=== PATIENT | male | born 1950 | race Caucasian/White ===

== ENCOUNTER 2017-01-16 06:13 | Inpatient (IN) | payer OTHER ==
[2016-12-18 10:15] VITALS: BMI 32.0
--- NOTE | 2016-12-18 10:54 | PAT Medication Instructions ---
Service Date Dec 18, 2016. Current Home Medication List Aspirin (Aspirin Ec), 81 MG PO HS Clopidogrel (Plavix), 75 MG PO QAM Dexlansoprazole (Dexilant), 1 CAP PO HS Empagliflozin (Jardiance), 1 TAB PO QAM Insulin Degludec (Tresiba Flextouch), 47 SQ HS Krill Oil (Krill Oil [place]-3), 1 CAP PO QAM Liraglutide (Victoza), 1.8 MG SQ QAM Metformin Hcl (Glucophage), 1,000 MG PO BID Olmesartan Medoxomil (Benicar), 40 MG PO HS Rosuvastatin Calcium (Crestor), 10 MG PO HS Medication Instructions For Your Scheduled Surgery - Check with surgeon/prescribing physician for instructions (check if okay to hold 7 days prior to anesthesia in order for spinal anesthesia to be used) Clopidogrel (Plavix), 75 MG PO QAM - Hold the following medications 2 weeks prior to surgery: Krill Oil (Krill Oil [place]-3), 1 CAP PO QAM - Hold the following medications 48 hours prior to surgery: Metformin Hcl (Glucophage), 1,000 MG PO BID - Hold the following medications the morning of surgery: Empagliflozin (Jardiance), 1 TAB PO QAM - Take the following medications the morning of surgery with a sip of water: Liraglutide (Victoza), 1.8 MG SQ QAM - Hold the following medications as scheduled the night before surgery: Olmesartan Medoxomil (Benicar), 40 MG PO HS - Take the following medications as scheduled the night before surgery: Insulin Degludec (Tresiba Flextouch), 47 SQ HS Rosuvastatin Calcium (Crestor), 10 MG PO HS Dexlansoprazole (Dexilant), 1 CAP PO HS Aspirin (Aspirin Ec), 81 MG PO HS (okay to continue per surgeon) If you have any questions please call us at [phone] or [phone] or [phone]
--- NOTE | 2016-12-18 11:29 | DIAGNOSTIC IMAGING REPORT ---
CHEST 2 VIEWS ROUTINE HISTORY: Preop. COMPARISON: None. FINDINGS: The lungs are clear. Cardiac silhouette is normal in size. No pleural effusions. No pneumothorax. IMPRESSION: No acute process. Electronically signed by: Froylan Jean M.D. 12/18/2016 11:28 AM Dictated Date/Time: 12/18/2016 11:27 AM
[2016-12-18 11:48] LABS: URINE APPEARANCE CLEAR (CLEAR); URINE BILIRUBIN NEG (NEG); URINE COLOR YELLOW; URINE NITRITE NEG (NEG); URINE SPECIFIC GRAVITY 1.034 (1.000-1.030); UROBILINOGEN NEG (NEG)
[2016-12-18 11:50] LABS: MANUAL MICROSCOPIC REQUIRED? NO; REVIEW REQ? NO
[2016-12-18 11:58] LABS: PROTHROMBIN TIME (PATIENT) 10.7 SECONDS (9.0-12.0)
[2016-12-18 12:00] LABS: BUN/CREATININE RATIO 18.8 (10-20); CALCIUM 8.8 mg/dl (8.5-10.1); CREATININE 1.1 mg/dl (0.60-1.40); POTASSIUM 4.1 mmol/L (3.5-5.1)
[2016-12-18 12:19] LABS: ESTIMATED AVERAGE GLUCOSE 143 mg/dl; HA1C FLAG Normal (Normal)
[2016-12-18 12:37] LABS: HEMATOCRIT 40.3 % (42-52); MEAN CELL VOLUME 91.8 fL (80-100); MEAN CORPUSCULAR HEMOGLOBIN 30.5 pg (25-34); MEAN CORPUSCULAR HGB CONC 33.3 g/dl (32-36); MEAN PLATELET VOLUME 13.3 fL (7.4-10.4); PLATELET COUNT 117 K/uL (130-400); RED BLOOD COUNT 4.39 M/uL (4.7-6.1); WHITE BLOOD COUNT 5.29 K/uL (4.8-10.8)
[2016-12-18 12:38] LABS: BASO % 0.9 %; BASO ABS # 0.05 K/uL (0-0.2); COMPLETE YES; EOS % 2.6 %; IG% 0.4 %; LARGE PLATELETS 1+; LYMPH % 33.1 %; LYMPH ABS # 1.75 K/uL (1.2-3.4); MONO % 5.5 %; NEUT % 57.5 %; PLT ESTIMATE DECREASED
--- NOTE | 2017-01-15 10:08 | HISTORY & PHYSICAL EXAMINATION ---
DATE OF ADMISSION: 01/16/2017 CHIEF COMPLAINT: Right knee pain. HISTORY OF PRESENT ILLNESS: The patient is a 65-year-old gentleman with known osteoarthritis about his right knee. He had a previous corticosteroid injection with short term relief. He continues to have pain and disability with activities of daily living and now desires to proceed with right total knee arthroplasty. PAST MEDICAL HISTORY: Hypertension, hypercholesterolemia, TIA, type 1 diabetes, and skin cancer. PAST SURGICAL HISTORY: Shoulder and knee surgery. DISCHARGE MEDICATIONS: Aspirin 325 mg daily, Benicar 40 mg daily, Crestor 10 mg daily, omega 3 fatty acids daily, metformin 1000 mg daily, Plavix 75 mg daily, Tresiba insulin pen, Victoza insulin pen, Dexilant 60 mg daily, and Jardiance 25 mg daily. ALLERGIES: No known drug allergies. SOCIAL HISTORY AND REVIEW OF SYSTEMS: Noncontributory. PHYSICAL EXAMINATION: GENERAL: Well-nourished and well-developed male, who appears his stated age. HEENT: Normocephalic and atraumatic. Extraocular movements intact. Oropharynx is pink and moist. NECK: Supple without adenopathy. LUNGS: Clear to auscultation bilaterally. HEART: Regular rate and rhythm. ABDOMEN: Soft, nontender, and nondistended. EXTREMITIES: The upper extremities within normal limits. The right knee is varus aligned. He complains primarily of medial compartment pain. His range of motion approximately -10 to 125 degrees. X-RAYS: X-rays were reviewed. He has a varus aligned knee. He has [id number] arthritis of the medial compartment with complete loss of joint space. There is mild osteophyte formation about the medial joint line. There is also mild osteophyte formation about the patellofemoral joint. ASSESSMENT: Right knee degenerative joint disease. PLAN: Risks versus benefits were discussed. Consent was obtained. The patient's primary care physician is Dr. Umaña from [place]. His security public safety officer is Dr. Hernandez from [place]. We will proceed with right total knee arthroplasty upon preoperative workup and medical clearance. RAGINI
[2017-01-16] VITALS (9 sets, daily range): BP systolic 118–155; BP diastolic 67–89; PULSE 55–68; TEMP 36.5–36.8; O2SAT 95–98; Ht 177.8 cm; Wt 103.2 kg
[~2017-01-16] VITALS: Ht 177.8 cm; Wt 103.2 kg
[~2017-01-16 06:13] MED LIST: ACETAMINOPHEN 500 MG TAB PO SCH; ASPI81TA28 PO; BNC/40 PO; CEFAZOLIN 2000 MG/60 ML D5W 60 ML IV SCH; CLOP1TAB15 PO; CeleBREX 200 MG CAP PO SCH; DEXAMETHASONE 4 MG TAB PO SCH; DEXL60CA4 PO; EMPA1TAB3 PO; FAMOTIDINE 20 MG TAB PO SCH; GABAPENTIN 300 MG CAP PO SCH; INSU1INJ33 SQ; KRIL1CAP7 PO; LACTATED RINGER'S 1000ML 1,000 ML IV SCH; LACTATED RINGER'S 1000ML 500 ML IV ONE; LACTATED RINGER'S 1000ML IV SCH; LIRA18IN SQ; METF-384 PO; METOCLOPRAMIDE HCL 10 MG TAB PO SCH; ROPIVACAINE 5MG/ML 30 ML 150 MG, BUPIVACAINE/EPINEPHR 0.5% MPF 30 ML, KETOROLAC TROMETH... INFIL SCH; ROSU5TAB PO
[2017-01-16] MEDS ORDERED: BUPIVACAINE 0.5 % 5 MG/1 ML PF 10ML VIAL ONE (06:24)
--- NOTE | 2017-01-16 07:05 | History & Physical Bridge Note ---
H&P Re-Evaluation Bridge Note: I have examined the patient, reviewed the History & Physical and in the interval since the performance of the History & Physical I have noted the following changes of clinical significance: No changes noted
[2017-01-16] MEDS ORDERED: MIDAZOLAM HCL 1 MG/ML 2ML VIAL ONE ×2 (07:26→07:27)
[2017-01-16] MEDS ORDERED: ORTHO JOINT ANESTHETIC ONE (07:51)
[2017-01-16] MEDS ORDERED: BACITRACIN 50000 UNIT VIAL ONE (07:51)
[2017-01-16] MEDS ORDERED: POVIDONE-IODINE OP SOLN 30 ML BTL ONE (07:51)
[2017-01-16] MEDS ORDERED: ATROPINE SULFATE 0.1 MG/ML 5ML SYR IV PRN (08:45)
[2017-01-16] MEDS ORDERED: ONDANSETRON INJ 2 MG/ML 2 ML VIAL IV PRN ×2 (08:45→10:30)
[2017-01-16] MEDS ORDERED: EpHEDrine SULFATE INJ 50 MG/ML AMP IV PRN (08:45)
[2017-01-16] MEDS ORDERED: FENTANYL CITRATE INJ 50 MCG/1 ML 2 ML VIAL IV PRN (08:45)
[2017-01-16] MEDS ORDERED: PROPOFOL IV EMULSION 10 MG/ML 20 ML VIAL IV ONE (08:54)
[2017-01-16] MEDS ORDERED: LIDOCAINE HCL 2% 2 ML VIAL (20MG/ML) ONE (08:54)
--- NOTE | 2017-01-16 09:36 | [facility] Post Operative Brief Note ---
Immediate Operative Summary Operative Date Jan 16, 2017. Pre-Operative Diagnosis Right Knee Degenerative Joint Disease Post-Operative Diagnosis Right Knee Degenerative Joint Disease Procedure(s) Performed Right Total Knee Arthroplasty Surgeon Dr. Chong Kaiako Kohanga Reo Surgeon(s) NATAN Wolfe Estimated Blood Loss 20cc Findings severe OA Specimens A. Right Knee Bone and Tissue Complication(s) None Disposition Recovery Room / PACU
--- NOTE | 2017-01-16 09:50 | OPERATIVE REPORT ---
DATE OF OPERATION: 01/16/2017 PREOPERATIVE DIAGNOSIS: Osteoarthritis, right knee. POSTOPERATIVE DIAGNOSIS: Osteoarthritis, right knee. PROCEDURE: Right total knee arthroplasty. SURGEON: Dr. Chong. GRAPHICS INTERN: NATAN Wolfe ANESTHESIA: Spinal. COMPLICATIONS: None. IMPLANTS USED: Femoral size 4, tibia size 4, tibial poly 9, and patella size 39. OPERATION AND FINDINGS: Following induction of spinal anesthesia, the patient's right leg was prepped and draped in the usual sterile manner. Limb was exsanguinated with an Esmarch bandage and tourniquet was inflated to 350 mmHg. A longitudinal incision was made anteriorly. Subcutaneous tissue was sharply dissected. Electrocautery was used for hemostasis. Prepatellar bursa was incised and median parapatellar incision was performed. Patella was everted and the knee was flexed. Fat pad was removed to aid in visualization and the anterior and posterior cruciate ligaments were removed. The medial face of the tibia was cleared of soft tissue first with a Bovie and a Knox elevator. This tissue was retracted posteriorly using a blunt Hohmann. A Mauro retractor was used to expose the synovium above on the anterior aspect of the femur and this was removed down to bone. The PSI guide was placed on the distal femur and two pins were placed anteriorly and kept in position and two additional pins were placed distally and removed. The distal femoral cutting block was placed in position and the distal femoral cut was used in the +0 setting. Next, the cutting block was removed and the femoral 4 block was placed in the distal end of the femur. Care was taken to ensure appropriate external rotation and feeler gauge was used to ensure no notching would occur. The femoral block was centered on the distal femur and in the medial and lateral direction and was fixed using two bone screws. The gold pins were then removed. The oscillating saw was used to create the bone cuts and the distal femoral cutting block was removed and the reciprocating saw was used to further trim the femoral cuts as well as a deep in the area for the trochlear groove. Next, posterior condyle remnants were removed. Following this, a meniscal clamp and knife were utilized to remove the anterior portion of both medial and lateral meniscus. The proximal tibia PSI guide was placed into position and the proximal tibial cutting guide was screwed into position. The extra medullary alignment guide was utilized to ensure appropriate alignment. The proximal tibia was cut and the proximal tibial cutting block was removed and this bone fragment was removed. The appropriate guide was used to perform the notch cut on the distal femur and a lamina mobile manager and a cochlear knife were utilized to finish both medial and lateral meniscectomies to remove any remnants of the posterior or anterior cruciate ligaments. Following this, the distal femoral component was impacted into position and blunt Jacqueline was used to sublux the tibia anteriorly. The proximal tibia was sized and a 4 tibial tray was chosen as the size to be used. This was put into position and appropriate external rotation and a double check with extramedullary alignment guide was performed. The canal for the tibial stem was prepared first with a 17 mm drill and then the punch and a mallet and the trial tibial poly was placed. A 9 was chosen the size to be used. It was brought to extension and the patella was prepared with the patellar reamer. A 39 component was chosen the size to be used. The trial component was placed and knee was taken through a full range of motion and there was found to be no lateral subluxation of the tibia. No lateral release was required. The trials were all removed. The final components were obtained and assembled. Cement was mixed. The knee was thoroughly irrigated and the ortho mix was injected about the knee joint. The final components were cemented into position. After thoroughly suctioning and drying the bone ends, all excess cement was removed. The knee was held in extension while the cement hardened. The wound was irrigated and closed over a Hemovac drain. #1 Vicryl was used to close the extensor mechanism. Subcutaneous tissues closed using 0 Dexon. Skin was closed with lourdes. Sterile dressing of Adaptic, 4 x 4's, sterile Webril, and Philpi was applied. The patient tolerated the procedure well. Due to the complex nature of the procedure, the entire surgery was performed with the operational assistance of NATAN Wolfe. The assistant corporate secretary, under direct supervision, was involved in the actual performance of all aspects of the surgical procedure including hemostasis, tissue retraction and incision, instrument management, patient positioning, and wound closure. DISPOSITION: Recovery room stable. I attest to the content of the Intraoperative Record and any orders documented therein. Any exception s are noted below.
[2017-01-16] MEDS ORDERED: TAMSULOSIN HCL 0.4 MG CAP PO PRN (10:30)
[2017-01-16] MEDS ORDERED: MAGNESIUM HYDROXIDE SUSP 30 ML UDC PO PRN (10:30)
[2017-01-16] MEDS ORDERED: MoRPHine SULFATE 4 MG/ML 1 ML CARP\\VIAL IV PRN (10:30)
[2017-01-16] MEDS ORDERED: MoRPHine SULFATE 2 MG/ML CARP IV PRN (10:30)
[2017-01-16] MEDS ORDERED: BISACODYL 10 MG SUPP PR PRN (10:30)
[2017-01-16] MEDS ORDERED: ALUMINUM/MAGNESIUM/SIMETH (MAALOX MAX) 30 ML UDC PO PRN (10:30)
[2017-01-16] MEDS ORDERED: PHARMACY GLYCEMIC MGMT CONSULT PRN (10:31)
--- NOTE | 2017-01-16 11:23 | Pharmacy Progress Note ---
Glycemic Control Intl Consult Date of Service Jan 16, 2017. Scope Glycemic Pharmacist consulted by Jose D Mckinley on 01/16/17 for glycemic control and to write orders per [facility] inpatient glycemic control protocol Objective Weight (Kilograms): 103.20 Accuchecks BSG (last 24hrs): Test 01/16/17 06:36 01/16/17 10:23 Bedside Glucose 130 mg/dl (70-99) 131 mg/dl (70-99) Recent Pertinent Medications Outpatient Anti-diabetic Regimen: * Tresiba (insulin degludec) 47 units SQ qHS * Victoza 1.8 mg SQ qAM * Empagliflozin 25 mg PO daily * Metformin 1g PO BID * A1c = 6.6 % 12/18/16 Risk Factors for Insulin Resistance: * Steroids: Orthomix + Dexamethasone 8 mg PO pre-op * Recent Surgery: R-TKA * Diet: T2DM Assessment & Plan ASSESSMENT: * 66 yr old T2DM male admitted for R-TKA. * Patient has good outpatient control evidenced by A1c of 6.6%. * Patient takes 47 units of basal insulin at home in addition to orals and Victoza. * Will increase basal insulin by 20% for POD #0 d/t anticipated steroid induced hyperglycemia. * ADA & AACE recommend a goal blood sugar range 140-180 mg/dl for the majority of critically ill & non-critically ill patients. However, more stringent targets may be selected in individual cases. Will utilize more stringent goal of 110-140mg/dl based on patient age & comorbidities. Additionally, tighter glycemic control is warranted to facilitate wound/infection healing. PLAN FOR INPATIENT GLYCEMIC CONTROL: * Holding outpatient oral diabetes medications * Basal insulin * Lantus 56 units SQ with dinner tonight * Further Lantus orders to be determined on 01/17 * Correctional Insulin with NOVOLOG per scale ACHS * Goal Range: Low 110 mg/dL - High 140 mg/dL * Correction Factor: 15 mg/dL/unit * Nutritional / Prandial insulin per carb ratio of 1 unit per 5 grams CHO consumed * Add overnight checks with coverage at 00 and 04 DISCHARGE RECOMMENDATIONS: * A1c 6.6& on 12/18/16 * Resume outpatient regimen on discharge * Please note that the plan above was derived based on current level of insulin resistance and hospital stress. These recommendations are appropriate for inpatient admission only. Plan of care upon discharge will need to be reassessed to avoid potential outpatient hypo/hyperglycemia. Thank you.
--- NOTE | 2017-01-16 11:43 | Anesthesiology Progress Note ---
Anesthesia Post Op Note Date & Time Jan 16, 2017 at 11:43 Vital Signs Pain Intensity: 0 Vital Signs Past 12 Hours Date Time Temp Pulse Resp B/P (MAP) Pulse Ox O2 Delivery O2 Flow Rate FiO2 01/16/17 11:35 60 16 134/73 99 Nasal Cannula 2 Oxymask 01/16/17 11:20 60 16 131/70 99 Nasal Cannula 2 Oxymask 01/16/17 11:05 60 16 140/80 99 Nasal Cannula 2 Oxymask 01/16/17 10:55 36.7 60 16 131/72 98 Nasal Cannula 2 Oxymask 01/16/17 10:45 60 16 123/71 98 Nasal Cannula 2 Oxymask 01/16/17 10:35 68 18 121/64 100 Oxymask 10 01/16/17 10:25 68 18 122/68 100 Oxymask 10 01/16/17 10:17 36.3 68 16 114/61 100 Oxymask 10 01/16/17 06:46 36.8 59 20 155/89 95 Room Air Notes Mental Status: alert / awake / arousable, participated in evaluation Pt Amnestic to Procedure: Yes Nausea / Vomiting: adequately controlled Pain: adequately controlled Airway Patency, RR, SpO2: stable & adequate BP & HR: stable & adequate Hydration State: stable & adequate Neuraxial Anesthesia: was administered, sensory block is resolving Anesthetic Complications: no major complications apparent
--- NOTE | 2017-01-16 12:03 | DIAGNOSTIC IMAGING REPORT ---
TWO VIEWS RIGHT KNEE CLINICAL HISTORY: Postoperative examination. FINDINGS: AP and crosstable lateral portable views of the right knee are obtained. A right knee arthroplasty is in near anatomic alignment. There has been undersurface remodeling of the patella. No acute fracture is seen. There are expected postoperative changes around the knee including a surgical drain, soft tissue edema, and subcutaneous gas. IMPRESSION: Expected postoperative changes status post right knee arthroplasty. No acute fracture is seen. Electronically signed by: Kar Cortes M.D. 01/16/2017 12:01 PM Dictated Date/Time: 01/16/2017 12:01 PM
[2017-01-16] MEDS: SODIUM CHLORIDE 0.9% 1000ML 1,000 ML IV SCH ×2 (12:32→20:15)
[2017-01-16] MEDS ORDERED: HydrALAZINE HCL 20 MG/ML VIAL IV. PRN (13:30)
--- NOTE | 2017-01-16 14:15 | Medical Consult ---
Consultation Date of Consultation: Jan 16, 2017. Attending Physician: Jimmy Chong M.D. Reason for Consultation: Medical management History of Present Illness This is a 66 y/o male with a history of HTN, HLD, h/o TIA, DM II, GERD, and skin cancer who presents s/p R TKA with Dr. Chong on 01/16 for medical management. He reports feeling well postoperatively. He denies any right knee pain currently as he just received pain medications. He does admit to some numbness/tingling in his right foot still, but this improving. He is tolerating a PO diet well and passing gas postoperatively. He has not yet urinated or had a bowel movement. The patient denies fevers, chills, sweats, chest pain, palpitations, claudication, cough, wheezing, shortness of breath, nausea, vomiting, abdominal pain, dysuria, hematuria, urinary retention, paralysis, and weakness. Past Medical/Surgical History HTN HLD h/o TIA DM II GERD h/o skin cancer Family History Cancer (lung, breast) Diabetes mellitus Myocardial infarction Stroke Social History Smoking Status: Never Smoker Smokeless Tobacco Use: No Alcohol Use: socially (2-3 beers/day) Drug Use: none Marital Status: Housing Status: lives with significant other Occupation Status: retired Allergies Coded Allergies: No Known Allergies (Unverified , 01/16/17) Current Inpatient Medications Current Inpatient Medications Medications (Trade) Dose Ordered Sig/Alissa Route Start Time Stop Time Status Last Admin Dose Admin Fentanyl Citrate (Fentanyl Inj) 50 mcg Q5M PRN IV 01/16/17 08:45 01/16/17 13:45 Ondansetron HCl (Zofran Inj) 4 mg ONE PRN IV 01/16/17 08:45 01/16/17 13:45 Ephedrine Sulfate (EpHEDrine SULFATE INJ) 5 mg Q5M PRN IV 01/16/17 08:45 01/16/17 13:45 Atropine Sulfate (Atropine Sulfate 0.1MG/Ml Inj) 0.5 mg Q1M PRN IV 01/16/17 08:45 01/16/17 13:45 Clopidogrel Bisulfate (plAVix TAB) 75 mg QAM PO 01/18/17 09:00 02/17/17 08:59 UNV Olmesartan (Benicar Tab) 40 mg HS PO 01/16/17 21:00 02/15/17 20:59 UNV Rosuvastatin Calcium (Crestor Tab) 10 mg HS PO 01/16/17 21:00 02/15/17 20:59 UNV Pantoprazole Sodium (Protonix Tab) 40 mg HS PO 01/16/17 21:00 02/15/17 20:59 UNV Non-Formulary Medication (Empagliflozin (Jardiance)) 1 tab QAM PO 01/17/17 09:00 02/16/17 08:59 UNV Non-Formulary Medication (Liraglutide (Victoza)) 1.8 mg QAM SQ 01/17/17 09:00 02/16/17 08:59 UNV Morphine Sulfate (MoRPHine SULFATE INJ) 2 mg Q4HWA PRN IV 01/16/17 10:30 01/30/17 10:29 Morphine Sulfate (MoRPHine SULFATE INJ) 4 mg Q4HWA PRN IV 01/16/17 10:30 01/30/17 10:29 Sodium Chloride 1,000 ml @ 100 mls/hr Q10H IV 01/16/17 10:20 01/17/17 10:19 01/16/17 12:32 100 MLS/HR Cefazolin Sodium 2000 mg/Dextrose 60 ml @ 100 mls/hr Q8H IV 01/16/17 10:30 01/16/17 19:05 UNV Ketorolac Tromethamine (Toradol Inj) 30 mg Q6H IV. 01/16/17 10:30 01/17/17 10:29 UNV Oxycodone HCl (Roxicodone Immediate Rel Tab) 1 TABLET FOR PAIN RATING... Q4H PRN PO 01/16/17 10:30 01/30/17 10:29 Acetaminophen (Tylenol Tab) 1,000 mg Q8H PO 01/16/17 10:30 02/15/17 10:29 UNV Magnesium Hydroxide (Milk Of Magnesia Susp) 30 ml Q6H PRN PO 01/16/17 10:30 02/15/17 10:29 Bisacodyl (Dulcolax Supp) 10 mg DAILY PRN AK 01/16/17 10:30 02/15/17 10:29 Senna (Senokot Tab) 17.2 mg HS PO 01/16/17 21:00 02/15/17 20:59 UNV Docusate Sodium (coLACE CAP) 100 mg BID PO 01/16/17 21:00 02/15/17 20:59 UNV Al Hydrox/Mg Hydrox/Simethicone (Maalox Max Susp) 15 ml Q4H PRN PO 01/16/17 10:30 02/15/17 10:29 Multivitamins (Multivitamin Tab) 1 tab QAM PO 01/17/17 09:00 02/16/17 08:59 UNV Ondansetron HCl (Zofran Inj) 4 mg Q6H PRN IV 01/16/17 10:30 02/15/17 10:29 Ferrous Gluconate (Ferrous Gluconate Tab) 324 mg TIDM PO 01/16/17 12:00 02/15/17 11:59 UNV Tamsulosin HCl (Flomax Cap) 0.4 mg QAM PRN PO 01/16/17 10:30 02/15/17 10:29 Tramadol HCl (Ultram Tab) 1 tablet for pain rating... Q4H PRN PO 01/16/17 10:30 02/15/17 10:29 Aspirin (Ecotrin Tab) 81 mg BID PO 01/16/17 21:00 02/15/17 20:59 UNV Insulin Aspart (novoLOG ASPART) SLIDING SCALE G... ACHS SC 01/16/17 11:00 02/15/17 10:59 UNV Miscellaneous Information (Consult Glycemic Management Pharmacy) 1 ea UD PRN N/A 01/16/17 10:31 02/15/17 10:30 Review of Systems See HPI for pertinent positives and negatives. All other systems reviewed and negative. Physical Exam Date Time Temp Pulse Resp B/P (MAP) Pulse Ox O2 Delivery O2 Flow Rate FiO2 01/16/17 12:30 36.6 68 16 131/80 (97) 98 Nasal Cannula 2.0 01/16/17 12:00 98 Nasal Cannula 2.0 01/16/17 12:00 98 Nasal Cannula 2.0 01/16/17 11:50 65 16 127/72 99 Nasal Cannula 2 Oxymask 01/16/17 11:35 60 16 134/73 99 Nasal Cannula 2 Oxymask 01/16/17 11:20 60 16 131/70 99 Nasal Cannula 2 Oxymask 01/16/17 11:05 60 16 140/80 99 Nasal Cannula 2 Oxymask 01/16/17 10:55 36.7 60 16 131/72 98 Nasal Cannula 2 Oxymask 01/16/17 10:45 60 16 123/71 98 Nasal Cannula 2 Oxymask 01/16/17 10:35 68 18 121/64 100 Oxymask 10 01/16/17 10:25 68 18 122/68 100 Oxymask 10 01/16/17 10:17 36.3 68 16 114/61 100 Oxymask 10 01/16/17 06:46 36.8 59 20 155/89 95 Room Air General appearance: +Obese. Well-developed, well-nourished, no apparent distress Head: Normocephalic, atraumatic Eyes: Normal inspection, PERRL, EOMI ENT: Normal ENT inspection, hearing grossly normal, pharynx normal Neck: Supple, no JVD, trachea midline Respiratory/Chest: Lungs clear to auscultation, normal breath sounds, no respiratory distress Cardiovascular: Regular rate & rhythm, no gallop, no murmur Abdomen/GI: Normal bowel sounds, non-tender, soft Extremities/Musculoskeletal: +Decreased sensation RLE. RLE covered in jayjay bandage. No calf tenderness, no pedal edema Neurological/Psych: Alert, normal mood/affect, oriented x 3 Skin: Normal color, warm/dry, no rash Laboratory Results Last 24 Hours Test 01/16/17 06:36 01/16/17 10:23 01/16/17 12:37 Bedside Glucose 130 mg/dl 131 mg/dl 209 mg/dl Assessment & Plan 66 y/o male with a history of HTN, HLD, h/o TIA, DM II, GERD and skin cancer who presents s/p R TKA with Dr. Chong on 01/16 for medical management. S/p R TKA--POD #0 -Pain management, DVT prophylaxis, and PT/OT as per primary team -AVSS HTN--stable -Hold Benicar for now until renal function checked/stable -PRP pending -Cover with hydralazine 10 mg IV q6h prn SBP >180 HLD -Continue Crestor 10 mg PO hs H/o TIA -ASA 81 mg PO BID for DVT prophylaxis per ortho -Continue Plavix 75 mg PO qd DM II--HgbA1c checked on 12/18/16 was 6.6 -Hold metformin, Jardiance, Victoza and home insulin -Insulin sliding scale -Check BSGs q ac and qhs -Pharmacy consulted for glycemic control per ortho GERD -Dexilant converted to Protonix 40 mg PO qd Thank you for this consultation. We will continue to follow. I agree with PA assessment and plan and have seen and examined pt myself VSS Labs reviewed Agree with diabetic regimen A1C controlled, pharmacy glycemic control Pt has no concerns at this time Dispo, DVT ppx per pt
[2017-01-16] MEDS: ACETAMINOPHEN 500 MG TAB PO SCH ×2 (14:23→21:53)
[2017-01-16] MEDS: INSULIN ASPART 100 UNITS/ML 3 ML PEN SC SCH ×4 (14:24→23:58)
[2017-01-16 14:41] LABS: MEAN CORPUSCULAR HGB CONC 32.3 g/dl (32-36)
[2017-01-16 14:49] LABS: MEAN CELL VOLUME 93.3 fL (80-100); MEAN CORPUSCULAR HEMOGLOBIN 30.1 pg (25-34); RED BLOOD COUNT 4.18 M/uL (4.7-6.1)
[2017-01-16 15:08] LABS: MEAN PLATELET VOLUME 13.3 fL (7.4-10.4); PLATELET COUNT 145 K/uL (130-400); PLT ESTIMATE NORMAL
[2017-01-16 15:24] LABS: BUN/CREATININE RATIO 14.5 (10-20); CALCIUM 8.5 mg/dl (8.5-10.1); CREATININE 1.5 mg/dl (0.60-1.40); POTASSIUM 4.9 mmol/L (3.5-5.1)
[2017-01-16] MEDS: CEFAZOLIN IV 2,000 MG in DEXTROSE 5% 50ML 50 ML IV SCH ×2 (16:25→23:55)
[2017-01-16] MEDS ORDERED: INSULIN GLARGINE SOLOSTAR 100 UNITS/ML 3 ML PEN SC SCH (17:45)
[2017-01-16] MEDS: FERROUS GLUCONATE 324 MG TAB PO SCH (17:52)
[2017-01-16] MEDS: KETOROLAC TROMETHAMINE 30 MG/ML VIAL IV. SCH ×2 (17:54→23:55)
[2017-01-16] MEDS: DOCUSATE SODIUM 100 MG CAP PO SCH (20:34)
[2017-01-16] MEDS: ASPIRIN 81 MG ECTAB PO SCH (20:34)
[2017-01-16] MEDS: SENNA 8.6 MG TAB PO SCH (20:35)
[2017-01-16] MEDS: ROSUVASTATIN CALCIUM 10 MG TAB PO SCH (20:36)
[2017-01-16] MEDS ORDERED: OLMESARTAN MEDOXOMIL 40 MG TAB PO SCH (21:00)
[2017-01-16] MEDS: PANTOprazole SOD 40 MG TAB PO SCH (21:07)
[2017-01-17 03:50] VITALS: BP 146/82; PULSE 67; TEMP 37.2; O2SAT 98
[2017-01-17] MEDS: INSULIN ASPART 100 UNITS/ML 3 ML PEN SC SCH ×5 (04:19→21:00)
[2017-01-17] MEDS: ACETAMINOPHEN 500 MG TAB PO SCH ×3 (05:54→22:02)
[2017-01-17] MEDS: KETOROLAC TROMETHAMINE 30 MG/ML VIAL IV. SCH ×2 (05:54→12:19)
[2017-01-17] MEDS: SODIUM CHLORIDE 0.9% 1000ML 1,000 ML IV SCH (05:54)
[2017-01-17 06:57] LABS: BUN/CREATININE RATIO 19.5 (10-20); CALCIUM 8.1 mg/dl (8.5-10.1); CREATININE 1.3 mg/dl (0.60-1.40); POTASSIUM 4.1 mmol/L (3.5-5.1)
[2017-01-17 07:10] VITALS: BP 138/78; PULSE 58; TEMP 36.8; O2SAT 98
[2017-01-17 07:18] LABS: HEMATOCRIT 32.4 % (42-52); MEAN CORPUSCULAR HEMOGLOBIN 30.9 pg (25-34); RED BLOOD COUNT 3.56 M/uL (4.7-6.1); WHITE BLOOD COUNT 13.91 K/uL (4.8-10.8)
--- NOTE | 2017-01-17 07:27 | Orthopedic Progress Note ---
Orthopedic Progress Note Date of Service Jan 17, 2017. Subjective Post OP Day: 1 Reports: feeling well Objective N/V intact, dressing C/D/I (Hemovac in place), toes mobile Date Time Temp Pulse Resp B/P (MAP) Pulse Ox O2 Delivery O2 Flow Rate FiO2 01/17/17 03:50 37.2 67 16 146/82 (103) 98 Room Air 01/17/17 00:03 Room Air 01/16/17 22:57 36.6 62 16 142/78 (99) 98 Room Air 01/16/17 20:32 36.7 61 17 124/67 (86) 96 Room Air 01/16/17 19:52 36.8 55 18 148/79 (102) 98 Room Air 01/16/17 15:40 Room Air 01/16/17 15:26 36.7 61 18 137/75 (95) 95 Room Air 01/16/17 14:24 36.5 63 18 118/69 (85) 98 Nasal Cannula 2.0 01/16/17 13:00 36.7 65 18 128/77 (94) 98 Nasal Cannula 2.0 01/16/17 12:30 36.6 68 16 131/80 (97) 98 Nasal Cannula 2.0 01/16/17 12:00 98 Nasal Cannula 2.0 01/16/17 12:00 98 Nasal Cannula 2.0 01/16/17 11:50 65 16 127/72 99 Nasal Cannula 2 Oxymask 01/16/17 11:35 60 16 134/73 99 Nasal Cannula 2 Oxymask 01/16/17 11:20 60 16 131/70 99 Nasal Cannula 2 Oxymask 01/16/17 11:05 60 16 140/80 99 Nasal Cannula 2 Oxymask 01/16/17 10:55 36.7 60 16 131/72 98 Nasal Cannula 2 Oxymask 01/16/17 10:45 60 16 123/71 98 Nasal Cannula 2 Oxymask 01/16/17 10:35 68 18 121/64 100 Oxymask 10 01/16/17 10:25 68 18 122/68 100 Oxymask 10 01/16/17 10:17 36.3 68 16 114/61 100 Oxymask 10 Laboratory Results 24 Hours: Test 01/16/17 14:17 01/17/17 05:35 Hematocrit 39.0 % 32.4 % Hemoglobin 12.6 g/dL 11.0 g/dL Assessment & Plan Assessment: 66 yo male stable POD #1 s/p right TKA Plan: 1. Med management 2. DVT prophylaxis- resume Plavix and ASA, SCDs 3. PT/OT 4. D/C planning- home w/ HH
--- NOTE | 2017-01-17 07:30 | Discharge Instructions ---
Discharge Instructions Date of Service Jan 17, 2017. Admission Reason for Admission: Right Knee Osteoarthritis Discharge Discharge Diagnosis / Problem: Right knee arthritis Discharge Goals Goal(s): Decrease discomfort, Improve function Activity Recommendations Activity Limitations: as noted below Weightbearing Status: Right weightbearing (as tolerated) . Instructions / Follow-Up Instructions / Follow-Up ACTIVITY RECOMMENDATIONS: SELF CARE INSTRUCTIONS AFTER TOTAL KNEE REPLACEMENT A. You may need to continue a physical therapy program after discharge from the hospital. There are several options available to you. Your doctor will assist you in selecting the best one for you. 1. An out-patient facility 2 to 3 times a week for therapy or home therapy. 2. Continue working on all exercises taught to you in the hospital. Your goals should be to increase bending of your knee to 90 degrees and beyond and to fully straighten your knee. B. You may progress at your own pace from walking with a walker or crutches to a cane; then to no assistive devices. C. Make walking a part of your daily routine. Be up as much as comfortable with rest periods throughout the day. Rest with leg elevation is very important. Use the ice wrap frequently for the first 3-4 weeks. D. There are no restrictions on activities. You may ride in a car, shop, participate in rn geriatric and all social activities. E. Wear the long elastic stockings (VITALY hose) 20 hours a day for 2 weeks after surgery. They can be removed several times a day for laundering and for a bath. F. You may shower, no tub baths until cleared by your doctor. SPECIAL CARE INSTRUCTIONS: VERY IMPORTANT TO READ AND REVIEW A. There are a few signs you need to watch for after you are home. Call [facility] if you notice any of the followin. Increased severe knee pain. Some pain is expected especially when you exercise. 2. Increased swelling in your leg or knee; pain or swelling of the calf muscle in either lower leg. 3. Any fluid drainage from the incision. 4. Shortness of breath or chest pain. B. Please call [facility] at if you have any concerns or questions about your operation or recovery. The doctor or his nurse will return your call promptly. C. You must take antibiotics before dental work, bladder, bowel or other surgery. Your doctor will provide you with a permanent care to carry describing this precaution. IMPORTANT: * REMEMBER TO TAKE ASPIRIN, 81 MG, TWICE DAILY FOR 4 WEEKS UNLESS OTHERWISE DIRECTED. THIS IS YOUR BLOOD THINNER. * HIGH RISK PATIENTS MAY BE PRESCRIBED A STRONGER BLOOD THINNER. THIS WILL BE PROVIDED AT DISCHARGE. * CALL IF INCREASED PAIN, REDNESS, DRAINAGE OR FEVER GREATER THAT 101. * WEAR VITALY HOSE 20 HOURS PER DAY FOR 2 WEEKS. Silverlon- This is a large adhesive bandage that contains silver ions. This helps your incision heal by fighting off bacteria and protecting it from the outside environment. You are permitted to shower with this dressing. This will remain on your incision for 7 days and then should be removed. Some visible blood or drainage through the dressing window is normal. If there is significant drainage or leaking noted before the 7 days notify your doctor's office immediately. Once removed, keep incision clean and dry. If there is any drainage or redness noted, please call your surgeon. FOLLOW UP VISIT: If appointment is not already scheduled: Please call [facility] to make a follow-up appointment for 2 weeks after your surgery at . Current Hospital Diet Patient's current hospital diet: Diabetes Type 1 Diet Discharge Diet Recommended Diet: Diabetes Type 1 Diet Procedures Procedures Performed: Right Total Knee Arthroplasty Pending Studies Studies pending at discharge: no Laboratory Results Hemoglobin A1c Test 12/18/16 11:00 Range/Units Estimated Average Glucose 143 mg/dl Hemoglobin A1c 6.6 H 4.5-5.6 % Medical Emergencies . Who to Call and When: Medical Emergencies: If at any time you feel your situation is an emergency, please call 911 immediately. . Non-Emergent Contact Non-Emergency issues call your: Surgeon Call Non-Emergent contact if: temperature is above 101.5, your pain is not controlled, wound has increased drainage, wound has increased redness . "Provider Documentation" section prepared by Marlon Gonzalez PA-C. . VTE Core Measure Inpt VTE Proph given/why not?: Other Anticoagulation (Plavix and ASA), T.E.D. Stockings, SCD's [place] Drug Monitoring Program Search Results: patient reviewed within database, no issues identified
[2017-01-17 07:42] LABS: MEAN PLATELET VOLUME 13.5 fL (7.4-10.4); PLATELET COUNT 139 K/uL (130-400); PLT ESTIMATE DECREASED
--- NOTE | 2017-01-17 08:25 | Anesthesiology Progress Note ---
Anesthesia Post Op Note Date & Time Jan 17, 2017 at 08:25 Vital Signs Pain Intensity: 0.0 Vital Signs Past 12 Hours Date Time Temp Pulse Resp B/P (MAP) Pulse Ox O2 Delivery O2 Flow Rate FiO2 01/17/17 07:10 36.8 58 16 138/78 (98) 98 Room Air 01/17/17 03:50 37.2 67 16 146/82 (103) 98 Room Air 01/17/17 00:03 Room Air 01/16/17 22:57 36.6 62 16 142/78 (99) 98 Room Air 01/16/17 20:32 36.7 61 17 124/67 (86) 96 Room Air Notes Mental Status: alert / awake / arousable, participated in evaluation Pt Amnestic to Procedure: Yes Nausea / Vomiting: adequately controlled Pain: adequately controlled Airway Patency, RR, SpO2: stable & adequate BP & HR: stable & adequate Hydration State: stable & adequate Neuraxial Anesthesia: sensory block resolved Anesthetic Complications: no major complications apparent
[2017-01-17 08:30] VITALS: O2SAT 98
[2017-01-17] MEDS: DOCUSATE SODIUM 100 MG CAP PO SCH ×2 (08:35→21:28)
[2017-01-17] MEDS: ASPIRIN 81 MG ECTAB PO SCH ×2 (08:35→21:28)
[2017-01-17] MEDS: FERROUS GLUCONATE 324 MG TAB PO SCH ×3 (08:35→17:59)
[2017-01-17] MEDS: MULTIVITAMIN TAB PO SCH (08:36)
[2017-01-17] MEDS ORDERED: PANTOprazole SOD 40 MG TAB PO SCH (09:00)
[2017-01-17] MEDS ORDERED: NON-FORMULARY MEDICATION (Liraglutide (Victoza) 1.8 MG) SQ SCH (09:00)
[2017-01-17] MEDS ORDERED: NON-FORMULARY MEDICATION (Empagliflozin (Jardiance) 1 TAB) PO SCH (09:00)
[2017-01-17] MEDS ORDERED: PNEUMOCOCCAL ADMINISTRATION CHARGE ONE (09:00)
[2017-01-17] MEDS ORDERED: PNEUMOCOCCAL POLYSACCHARIDES 25 MCG/0.5 ML VIAL/SYR IM. ONE (09:00)
[2017-01-17] MEDS: TRAMADOL HCL 50 MG TAB PO PRN (09:55)
--- NOTE | 2017-01-17 10:16 | Pharmacy Progress Note ---
Glycemic Control Progress Note Date of Service Jan 17, 2017. Scope Glycemic Pharmacist consulted for glycemic control to write orders per [facility] inpatient glycemic control protocol. Objective Accuchecks BSG (last 24hrs): Test 01/16/17 10:23 01/16/17 12:37 01/16/17 14:17 01/16/17 17:03 Bedside Glucose 131 mg/dl (70-99) 209 mg/dl (70-99) 205 mg/dl (70-99) Random Glucose 290 mg/dl (70-99) Test 01/16/17 21:05 01/16/17 23:54 01/17/17 03:48 01/17/17 05:35 Bedside Glucose 210 mg/dl (70-99) 167 mg/dl (70-99) 149 mg/dl (70-99) Random Glucose 151 mg/dl (70-99) Test 01/17/17 08:05 Bedside Glucose 156 mg/dl (70-99) Recent Pertinent Medications The patient is currently receiving: * Basal insulin: Lantus 56 units every 24 hours * Correctional Insulin: Novolog Correction per scale ACHS Goal Range: Low 110 mg/dL - High 140 mg/dL Correction Factor: 15 mg/dL/unit * Prandial insulin: Per carb ratio of 1 unit per 5 grams CHO consumed Outpatient Anti-Diabetic Meds * Tresiba (insulin degludec) 47 units SQ qHS * Victoza 1.8 mg SQ qAM * Empagliflozin 25 mg PO daily * Metformin 1g PO BID Assessment & Plan ASSESSMENT: * See progress note from 01/17/17 for more background info, in short: * Pt receiving SQ basal bolus insulin regimen for hyperglycemia secondary to baseline DM (outpatient regimen on hold), recent surgery, steroids * Today is POD #1, no further steroids to be given * Resume home basal dose and loosen Novolog tonight/tomorrow as steroid effects should dissipate over the next 24 hours PLAN FOR INPATIENT GLYCEMIC CONTROL: * Oral Agents * Continue to hold outpatient oral diabetes medications. * Basal insulin * Lantus 45 units SQ HS * Bolus insulin * NovoLog per scale ACHS or Q6hrs while NPO * Goal Range: Low 110 mg/dL - High 140 mg/dL * Correction Factor: 15 mg/dL/unit -- consider 20 * Nutritional / Prandial insulin per carb ratio of 1 unit per 5 grams CHO consumed -- consider 10/02 * Please note that the plan above was derived based on current level of insulin resistance and hospital stress. These recommendations are appropriate for inpatient admission only. Plan of care upon discharge will need to be reassessed to avoid potential outpatient hypo/hyperglycemia. Thank you.
[2017-01-17 15:40] VITALS: BP 143/70; PULSE 63; TEMP 36.9; O2SAT 98
--- NOTE | 2017-01-17 16:47 | Progress Note ---
Subjective Date of Service: Jan 17, 2017. Subjective Pt evaluation today including: conversation w/ patient, conversation w/ family , physical exam, chart review, lab review, review of inpatient medication list feeling good. no significant pain. a little stiff but no other complaints. sugars reviewed - reasonable. BP reviewed, reasonable. no other complaitns. all other ROS otherwise negative except for as above Review of Systems all other ROS otherwise negative except for as above Objective Vital Signs Date Time Temp Pulse Resp B/P (MAP) Pulse Ox O2 Delivery O2 Flow Rate FiO2 01/17/17 15:40 36.9 63 16 143/70 (94) 98 Room Air 01/17/17 15:00 Room Air 01/17/17 08:30 98 Room Air 01/17/17 07:10 36.8 58 16 138/78 (98) 98 Room Air 01/17/17 03:50 37.2 67 16 146/82 (103) 98 Room Air 01/17/17 00:03 Room Air 01/16/17 22:57 36.6 62 16 142/78 (99) 98 Room Air 01/16/17 20:32 36.7 61 17 124/67 (86) 96 Room Air 01/16/17 19:52 36.8 55 18 148/79 (102) 98 Room Air Physical Exam General Appearance: no apparent distress Eyes: EOMI ENT: hearing grossly normal Neck: trachea midline Respiratory/Chest: no respiratory distress, no accessory muscle use Extremities: normal range of motion 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, alert, normal mood/affect Skin: normal color, warm/dry Laboratory Results Last 24 Hours Test 01/16/17 17:03 01/16/17 21:05 01/16/17 23:54 01/17/17 03:48 Bedside Glucose 205 mg/dl 210 mg/dl 167 mg/dl 149 mg/dl Test 01/17/17 05:35 01/17/17 08:05 01/17/17 10:02 01/17/17 12:08 White Blood Count 13.91 K/uL Red Blood Count 3.56 M/uL Hemoglobin 11.0 g/dL Hematocrit 32.4 % Mean Corpuscular Volume 91.0 fL Mean Corpuscular Hemoglobin 30.9 pg Mean Corpuscular Hemoglobin Concent 34.0 g/dl RDW Standard Deviation 44.2 fL RDW Coefficient of Variation 13.3 % Platelet Count 139 K/uL Mean Platelet Volume 13.5 fL Platelet Estimate DECREASED Sodium Level 139 mmol/L Potassium Level 4.1 mmol/L Chloride Level 108 mmol/L Carbon Dioxide Level 24 mmol/L Anion Gap 7.0 mmol/L Blood Urea Nitrogen 25 mg/dl Creatinine 1.30 mg/dl Est Creatinine Clear Calc Drug Dose 68.2 ml/min Estimated GFR () 66.4 Estimated GFR (Non- 57.3 BUN/Creatinine Ratio 19.5 Random Glucose 151 mg/dl Calcium Level 8.1 mg/dl Bedside Glucose 156 mg/dl 198 mg/dl 25-Hydroxy Vitamin D Total 20.8 ng/ml Assessment and Plan S/p R TKA--POD #1 -Pain management, DVT prophylaxis, and PT/OT as per primary team HTN--reasonable control, hemodynamically stable so OK to resume benicar mild leukocytosis -no s/s infection - likely stress/steroid response -w/u further if fever or s/s infection ensue HLD -Continue Crestor 10 mg PO hs prior TIA/cerebrovascular disease -ASA 81 mg PO BID for DVT prophylaxis per ortho -Continue Plavix 75 mg PO qd DM II--HgbA1c checked on 12/18/16 was 6.6 -Holding metformin, Jardiance, Victoza and home insulin -Insulin sliding scale -Check BSGs q ac and qhs --> sugars under reasonable control -Pharmacy consulted for glycemic control per ortho vitamin D insufficiency -supplement - would use D2 50,000 weekly x 12 and D3 2000 daily - then have recheck level in about 3-4 months GERD -Dexilant converted to Protonix 40 mg PO qd patient appearing medically stable, will sign off at this time. please do not hesitate to contact if i can be of further assistance
[2017-01-17] MEDS ORDERED: ERGOCALCIFEROL 50,000 INTER.UNIT CAP PO ONE (17:30)
[2017-01-17] MEDS ORDERED: INSULIN GLARGINE SOLOSTAR 100 UNITS/ML 3 ML PEN SC SCH (21:00)
[2017-01-17] MEDS ORDERED: OLMESARTAN MEDOXOMIL 40 MG TAB PO SCH (21:00)
[2017-01-17] MEDS: PANTOprazole SOD 40 MG TAB PO SCH (21:32)
[2017-01-17] MEDS: ROSUVASTATIN CALCIUM 10 MG TAB PO SCH (21:33)
[2017-01-17] MEDS: SENNA 8.6 MG TAB PO SCH (21:33)
[2017-01-17] MEDS: OXYCODONE HCL IR 5 MG TAB (IMMEDIATE RELEASE) PO PRN (21:34)
[2017-01-17 23:03] VITALS: BP 145/71; PULSE 67; TEMP 37; O2SAT 97
[2017-01-18] MEDS: TRAMADOL HCL 50 MG TAB PO PRN (01:57)
[2017-01-18] MEDS: ACETAMINOPHEN 500 MG TAB PO SCH (05:37)
[2017-01-18 06:42] VITALS: BP 124/73; PULSE 67; TEMP 37; O2SAT 97
[2017-01-18] MEDS: OXYCODONE HCL IR 5 MG TAB (IMMEDIATE RELEASE) PO PRN ×2 (06:49→10:22)
[2017-01-18] MEDS: MULTIVITAMIN TAB PO SCH (07:34)
[2017-01-18] MEDS: FERROUS GLUCONATE 324 MG TAB PO SCH (07:34)
[2017-01-18] MEDS: INSULIN ASPART 100 UNITS/ML 3 ML PEN SC SCH (07:40)
--- NOTE | 2017-01-18 07:59 | Orthopedic Progress Note ---
Orthopedic Progress Note Date of Service Jan 18, 2017. Subjective Post OP Day: 2 Reports: feeling well Objective calves soft nontender, N/V intact, dressing C/D/I, toes mobile Date Time Temp Pulse Resp B/P (MAP) Pulse Ox O2 Delivery O2 Flow Rate FiO2 01/18/17 06:42 37.0 67 16 124/73 (90) 97 Room Air 01/17/17 23:03 37.0 67 16 145/71 (95) 97 Room Air 01/17/17 21:00 Room Air 01/17/17 15:40 36.9 63 16 143/70 (94) 98 Room Air 01/17/17 15:00 Room Air 01/17/17 08:30 98 Room Air Assessment & Plan Assessment: 66 yo male stable POD #2 s/p right TKA Plan: 1. Med management 2. DVT prophylaxis- resume Plavix and ASA, SCDs 3. PT/OT 4. D/C planning- home w/ HH
[2017-01-18] MEDS ORDERED: ACET-24 PO (08:01)
[2017-01-18] MEDS ORDERED: RXC5 PO (08:01)
[2017-01-18] MEDS ORDERED: ONDA8TAB12 PO (08:01)
[2017-01-18] MEDS: DOCUSATE SODIUM 100 MG CAP PO SCH (08:16)
[2017-01-18] MEDS: ASPIRIN 81 MG ECTAB PO SCH (08:16)
[2017-01-18] MEDS ORDERED: CLOPIDOGREL BISULFATE 75 MG TAB PO SCH (09:00)
[2017-01-18] MEDS ORDERED: CHOLECALCIFEROL 1000 INTER.UNIT TAB PO SCH (09:00)
[2017-01-18 09:11] VITALS: BP 124/73; PULSE 67; TEMP 37; O2SAT 97
--- NOTE | 2017-01-23 15:31 | DISCHARGE SUMMARY ---
DISCHARGE DIAGNOSIS: Degenerative joint disease, right knee. SECONDARY DIAGNOSES: Hypertension, hypercholesterolemia, transient ischemic attack, type 1 diabetic and skin carcinoma. CONSULTS: Yanna Moya PA-C/Simon Pineda DO COMPLICATIONS: None. PROCEDURES: Right total knee arthroplasty performed by Dr. Chong on 01/16/2017. BRIEF HISTORY: As dictated in the history and physical. HOSPITAL SUMMARY: The patient was admitted on the above-noted date and had the above-noted surgery performed, which he tolerated well. Postoperatively, he was doing well on the first day and had no complaints. Dressings were intact. Toes were mobile and vital signs were stable. Hemoglobin was 12.6. He was started on his PT protocol and continued on DVT prophylaxis and pain management and medical management. By January 18, he continued to remain medically stable as well as orthopedically stable. Calves were soft and nontender, neurovascularly intact. Dressings clean, dry and intact. Toes were mobile. He was progressing with his physical therapy and remaining medically stable and it was felt he could be discharged to home with home health services. For further review, please see chart. LABORATORY AND X-RAY DATA: As per chart. DISCHARGE INSTRUCTIONS: The patient was discharged to home in satisfactory condition on 01/18/2017. DIET: Diabetic. ACTIVITY: Weightbearing as tolerated, right lower extremity. Follow TK instruction sheets and special care instructions as noted and follow up with Dr. Chong in 2 weeks. The patient is to call for appointment if one has not been made for you. DISCHARGE MEDICATIONS: Acetaminophen 1000 mg p.o. q. 8 hours for 14 days, Zofran 8 mg p.o. q. 8 hours p.r.n. nausea, oxycodone 5-10 mg p.o. q. 4 hours p.r.n., resume aspirin 81 mg p.o. at bedtime, clopidogrel 75 mg p.o. q.a.m., Dexilant 1 cap p.o. at bedtime, Jardiance 25 mg 1 tab p.o. q.a.m,. Tresiba FlexTouch insulin 47 units subQ at bedtime, Krill oil 1 cap p.o. q.a.m., Victoza 1.8 mg subQ in the a.m., metformin 1000 mg p.o. b.i.d., Benicar 40 mg p.o. at bedtime and Crestor 10 mg p.o. at bedtime.
== END 2017-01-18 10:34 | disposition home health service (06) | DRG 470 ==
LOC: C.ACU 06:13 → C.3E 08:00 → ENRESERV 11:42
PROC: 0SRC0J9 Replacement of Right Knee Joint with Synthetic Substitute, Cemented, Open Approach (ICD-10-PCS; principal; 2017-01-16 08:45)
DX: M17.11 Unilateral primary osteoarthritis, right knee (principal); M21.161 Varus deformity, not elsewhere classified, right knee; D72.829 Elevated white blood cell count, unspecified; T38.0X5A Adverse effect of glucocorticoids and synthetic analogues, initial encounter; I10 Essential (primary) hypertension; E11.9 Type 2 diabetes mellitus without complications; E78.00 Pure hypercholesterolemia, unspecified; E78.5 Hyperlipidemia, unspecified; K21.9 Gastro-esophageal reflux disease without esophagitis; G47.33 Obstructive sleep apnea (adult) (pediatric); E55.9 Vitamin D deficiency, unspecified; E66.9 Obesity, unspecified; Z68.32 Body mass index [BMI] 32.0-32.9, adult; Z23 Encounter for immunization; Z86.73 Personal history of transient ischemic attack (TIA), and cerebral infarction without residual deficits; Z79.82 Long term (current) use of aspirin; Z79.02 Long term (current) use of antithrombotics/antiplatelets; Z79.4 Long term (current) use of insulin; Z79.84 Long term (current) use of oral hypoglycemic drugs; Z79.899 Other long term (current) drug therapy